=== PATIENT | male | born 1980 | race Caucasian/White ===

== ENCOUNTER 2019-05-30 09:44 | Emergency (ER) | payer SELFPAY ==
[~2019-05-30] VITALS: Ht 160 cm; Wt 87.0 kg
[~2019-05-30 09:44] MED LIST: CIPR500T4 PO; FAMO-96 PO; IBUP-1542 PO; MAG-19 PO; TRAM50TA2 PO
[2019-05-30 09:46] VITALS: BP 134/75; PULSE 98; RESP 20; Ht 160 cm; Wt 87.0 kg
[2019-05-30] MEDS ORDERED: KETOROLAC 30 MG INJ IM STA (10:06)
--- NOTE | 2019-05-30 10:20 | ERD ---
ER Documentation Chief Complaint Chief Complaint abdominal pain w/nausea on/off x1wk HPI 38-year-old male presented to ED for abdominal pain nausea has been going on and off for the last week. Patient states that the symptoms tend to happen after he eats and points to his right upper quadrant. Patient states the pain does not radiate to any other region of the body. The patient has a history of kidney stones but denies any blood in his urine back pain at this time. The patient denies any allergies to medications states he does not take any medications. The patient states that when the pain happens it is about an 8 out of 10 but right now he states is only a 3 out of 10. ROS All systems reviewed and are negative except as per history of present illness. Medications Home Meds Active Scripts Magaldrate/Simethicone* (Mylanta*) 355 Ml Susp, 30 ML PO QID PRN for GASTROINTESTINAL UPSET, #1 BOTTLE Prov:AMARA LAUREN PA-C 05/30/19 Famotidine* (Pepcid*) 20 Mg Tablet, 20 MG PO BID for 4 Days, TAB Prov:AMARA LAUREN PA-C 05/30/19 Ibuprofen* (Motrin*) 600 Mg Tab, 600 MG PO Q6, #30 TAB Prov:AMARA LAUREN PA-C 05/30/19 Tramadol HCl (Tramadol HCl) 50 Mg Tablet, 50 MG PO Q6 PRN for PAIN, #20 TAB Prov:MISTY OBRIEN MD 02/22/16 Ciprofloxacin Hcl* (Ciprofloxacin Hcl*) 500 Mg Tablet, 500 MG PO BID for 10 Days, TAB Prov:MISTY OBRIEN MD 02/22/16 Allergies Allergies: Coded Allergies: No Known Allergy (Unverified , 12/16/13) PMhx/Soc History of Surgery: No Anesthesia Reaction: No Hx Neurological Disorder: No Hx Respiratory Disorders: No Hx Cardiac Disorders: Yes (high cholesterol) Hx Psychiatric Problems: No Hx Miscellaneous Medical Probl: No Hx Alcohol Use: No Hx Substance Use: Yes (STATED ALL DRUGS) Hx Tobacco Use: Yes FmHx Family History: No diabetes, No coronary disease, No other Physical Exam Vitals Vital Signs Date Temp Pulse Resp B/P (MAP) Pulse Ox O2 O2 Flow FiO2 Time Delivery Rate 05/30/19 97.9 98 20 134/75 99 09:46 (94) Physical Exam GENERAL: The patient is well-appearing, well-nourished, in no acute distress HEENT: Atraumatic. Conjunctivae are pink. Pupils equal, round, and reactive to light. There is no scleral icterus. Tympanic membranes clear bilaterally. Oropharynx clear. No nystagmus or photophobia. NECK: C-spine is soft and supple. There is no meningismus. There is no cervical lymphadenopathy. CHEST: Clear to auscultation bilaterally. There are no rales, wheezes or rhonchi. HEART: Regular rate and rhythm. No murmurs, clicks, rubs or gallops. ABDOMEN: Palpation to the right upper quadrant provokes patient's symptoms. BACK: No midline or flank tenderness. Results 24 hrs Laboratory Tests Test 05/30/19 10:17 Urine Color YELLOW Urine Clarity CLEAR Urine pH 5.0 Urine Specific [place] 1.024 Urine Ketones NEGATIVE mg/dL Urine Nitrite NEGATIVE mg/dL Urine Bilirubin NEGATIVE mg/dL Urine Urobilinogen NEGATIVE mg/dL Urine Leukocyte Esterase NEGATIVE Damián/ul Urine Microscopic RBC 5 /HPF Urine Microscopic WBC 1 /HPF Urine Mucus FEW /HPF Urine Hemoglobin 1+ mg/dL Urine Glucose NEGATIVE mg/dL Urine Total Protein NEGATIVE mg/dl Current Medications Medications Dose Sig/Michele Start Time Status Last (Trade) Ordered Route PRN Stop Time Admin Dose Reason Admin Ketorolac 30 mg ONCE STAT 05/30/19 DC Tromethamine IM 10:06 (Toradol) 05/30/19 10:08 Procedures/MDM ED course: The patient was stable throughout the ED course. The patient and/or family informed of laboratory and diagnostic imaging results throughout the ED course. Diagnostic imaging: Read by radiologist Dr. Eleuterio ATKINS: US Abdomen. CLINICAL INDICATION: abdominal pain TECHNIQUE: Multiple real-time images were acquired of the patient's right upper quadrant abdomen and retroperitoneum utilizing a high resolution transducer. COMPARISON: None FINDINGS: The liver demonstrates increased echogenicity. The liver is slightly enlarged in size and no focal solid lesions are seen. The liver measures 17.7 cm in length. The portal vein is patent with normal direction of flow. No intrahepatic biliary dilatation is seen. No gallstones are identified within the gallbladder. There is no pericholecystic fluid or gallbladder wall thickening. The common bile duct measures 5.7 mm in maximal dimension. The visualized portions of the pancreas are unremarkable. The tail of the pancreas is not seen. No free fluid is identified. The right kidney is normal in size, and demonstrate normal echogenicity and cortical thickness. The right kidney measures 12.1 cm in long dimension. There is no evidence of hydronephrosis. There are no kidney stones. RPTAT: AA IMPRESSION: Mild hepatomegaly with diffuse fatty infiltration of the liver. No evidence of gallstones. Medications given in ER: Toradol Patient tolerated medication well with no adverse reactions. Patient reported improvement in pain. Medical decision makin-year-old male presented to ED for right upper quadrant abdominal pain with nausea on and off for a week. Patient has history of kidney stones but denies any back pain or dysuria. Physical exam revealed right upper quadrant tenderness on palpation. Patient was afebrile with vital stable and O2 sats 99%. The patient denies any cough cold or flulike symptoms. The patient states that the symptoms happen after eating a heavy meal. Patient's ultrasound showed no evidence of gallstones but did show mild hepatomegaly with diffuse fatty infiltrates of the liver. Patient states that he is been told in the past that he has a fatty liver. The patient was given Toradol for pain symptoms and upon reevaluation the patient appears to be doing much better. The patient remained stable his entire visit in the ED afebrile with stable vitals. At this time I have low suspicion for DKA, bowel perforation, cholecystitis, choledocholithiasis, ascending cholangitis, hepatic abscess, pancreatitis, PUD, gastritis, splenic rupture, diverticulitis, pyelonephritis, nephrolithiasis, appendicitis, constipation, testicular torsion, epididymitis, urethritis, or prostatitis, pneumonia, MD. This time the patient will be treated outpatient with Mylanta Pepcid Motrin for GERD. This patient needs follow-up with primary care provider in 1 to 2 days regarding this visit. Advised patient if symptoms worsen return to ER immediately. Patient is agreement treatment plan had no further questions upon discharge Prescription for home: Mylanta Pepcid Motrin I have discussed with the patient proper use and common side effects to expert with the medication . I advised the patient/family to speak with the pharmacist dispensing the medication to be advised of any potential drug interactions with other medication or supplements they may be taking. Discharge: At this time, patient is stable for discharge and outpatient management. I have instructed the patient to follow-up with his\her primary care physician in 1 to 2 days. I have discussed with the patient the possibility of needing to see a specialist for further work-up and imaging studies if symptoms persist. I have instructed the patient to promptly return to the ER for any new or worsening symptoms including increased pain, fever, nausea, vomiting, weakness or LOC. The patient and\or family expressed understanding of and agreement with this plan. All questions were answered. Home care instructions were provided. Disclaimer: Inadvertent spelling and grammatical errors are likely due to EHR\dictation software use and do not reflect on the overall quality of patient care. Also, please note that the electronic time recorded on the note does not necessarily reflect the actual time of the patient encounter. Departure Diagnosis: Primary Impression: GERD (gastroesophageal reflux disease) Esophagitis presence: without esophagitis Qualified Codes: K21.9 - Gastro- esophageal reflux disease without esophagitis Additional Impression: Fatty liver Condition: Stable AMARA LAUREN PA-C May 30, 2019 10:20
== END 2019-05-30 11:27 | disposition home or self-care (01) ==
LOC: FTE 09:44
DX: K21.9 Gastro-esophageal reflux disease without esophagitis (principal); K76.0 Fatty (change of) liver, not elsewhere classified; Z87.891 Personal history of nicotine dependence
CPT/HCPCS: 76705; 81001; J1885